=== PATIENT | male | born 1940 | race Caucasian/White ===

== ENCOUNTER 2016-04-30 09:31 | Emergency (ER) | payer OTHER ==
[~2016-04-30] VITALS: Ht 157.5 cm; Wt 67.4 kg
[2016-04-30 09:39] VITALS: Ht 157.5 cm; Wt 67.4 kg
[2016-04-30] MEDS ORDERED: SOD CHLORIDE 0.9% 1,000 ML IV STA (12:13)
[2016-04-30 12:24] LABS: ADD SCAN DIFF NO
[2016-04-30 12:28] LABS: BASOPHILS % 0.3 % (0.0-2.0); EOSINOPHILS % 0.3 % (0.0-7.0); HEMATOCRIT 50.1 % (42.0-52.0); HEMOGLOBIN 16.9 g/dl (14.0-18.0); LYMPHOCYTES # 1.5 10^3/ul (0.8-2.9); LYMPHOCYTES % 9.7 % (15.0-51.0); MEAN CORPUSCULAR HEMOGLOBIN 30.2 pg (29.0-33.0); MEAN CORPUSCULAR HGB CONC 33.7 g/dl (32.0-37.0); MEAN CORPUSCULAR VOLUME 89.6 fl (82.0-101.0); MEAN PLATELET VOLUME 10.5 fl (7.4-10.4); MONOCYTE # 0.5 10^3/ul (0.3-0.9); MONOCYTES % 3.4 % (0.0-11.0); NEUTROPHIL # 12.8 10^3/ul (1.6-7.5); NEUTROPHILS % 85.7 % (39.0-77.0); PLATELET COUNT 242 10^3/UL (140-415); RED BLOOD COUNT 5.59 10^6/ul (4.70-6.10); RED CELL DISTRIBUTION WIDTH 12.1 % (11.5-14.5)
[2016-04-30] MEDS ORDERED: MECLIZINE 12.5 MG TAB PO ONE (12:30)
[2016-04-30 12:46] LABS: ALBUMIN 4.2 g/dl (3.3-4.9); POTASSIUM 4.3 mmol/L (3.5-5.1)
[2016-04-30 12:48] LABS: BILIRUBIN,INDIRECT 0.4 mg/dl (0-1.1); BILIRUBIN,TOTAL 0.4 mg/dl (0.2-1.3); CREATININE 0.72 mg/dl (0.61-1.24)
[2016-04-30 12:49] LABS: ALBUMIN/GLOBULIN RATIO 1.16; CALCIUM 9.2 mg/dl (8.4-10.2); TOTAL PROTEIN 7.8 g/dl (6.1-8.1)
[2016-04-30 12:51] VITALS: BP 170/81; PULSE 61; RESP 18
[2016-04-30] MEDS ORDERED: DIPH1TAB PO (13:36)
[2016-04-30] MEDS ORDERED: MECL-77 PO (13:36)
[2016-04-30] MEDS ORDERED: ONDA4TAB14 PO (13:36)
--- NOTE | 2016-04-30 13:40 | ERD ---
ER Documentation Chief Complaint Date/Time DATE: 04/30/16 TIME: 13:37 Chief Complaint vomiting,diarrhea,dizziness, weakness HPI This is 75-year-old male complains of day 2 of nausea vomiting and diarrhea. The patient has had 3 episodes of vomiting and one episode of loose stool. Both are nonbloody nonbilious. Patient states he also has room spinning no headache no focal neurological complaints such as numbness or weakness no problems swallowing or speaking. No visual disturbance. He keeps his head still symptoms are better. Patient says the symptoms are worse when moving of the head. No chest pain shortness of breath cough no diaphoresis no abdominal pain ROS All systems reviewed and are negative except as per history of present illness. Medications Home Meds Active Scripts Diphenoxylate HCl/Atropine (Lomotil 2.5-0.025 mg Tablet) 1 Each Tablet, 1 TAB PO QID Y for DIARRHEA, #10 TAB Prov:TOÑO GEORGE DO 04/30/16 Ondansetron (Ondansetron Odt) 4 Mg Tab.rapdis, 4 MG PO Q6H Y for NAUSEA AND/OR VOMITING, #10 TAB Prov:TOÑO GEORGE. DO 04/30/16 Meclizine Hcl* (Meclizine Hcl*) 25 Mg Tablet, 25 MG PO Q8H Y for DIZZINESS, #30 TAB Prov:MARK GEORGES A. DO 04/30/16 Allergies Allergies: Coded Allergies: No Known Allergy (Unverified , 04/30/16) PMhx/Soc Medical and Surgical Hx: pt denies Medical Hx, pt denies Surgical Hx Hx Alcohol Use: No Hx Substance Use: No Hx Tobacco Use: No Smoking Status: Former smoker FmHx Family History: No coronary disease Physical Exam Vitals Vital Signs Date Time Temp Pulse Resp B/P Pulse Ox O2 Delivery O2 Flow Rate FiO2 04/30/16 12:51 61 18 170/81 99 Room Air 04/30/16 09:39 98.1 59 20 162/96 99 Physical Exam Const: Well-developed, well-nourished Head: Atraumatic, normocephalic Eyes: Normal Conjunctiva, PERRLA, EOMI, normal sclera, horizontal nystagmus ENT: Normal External Ears, Nose and Mouth, moist mucus membranes. Neck: Full range of motion. No meningismus, no lymphadenopathy. Resp: Clear to auscultation bilaterally, no wheezing, rhonchi, rales Cardio: Regular rate and rhythm, no murmurs, S1 S2 present Abd: Soft, non tender x 4, non distended. Normal bowel sounds, no guarding or rebound, no pulsitile abdominal masses or bruits Skin: No petechiae or rashes, no ecchymosis , no maculopapular rash Back: No midline or flank tenderness Ext: No cyanosis, or edema, FROM x 4, normal inspection, neurovascularly intact x 4 Neur: Awake and alert, STR 5/5 x 4, sensation intact x 4, no focal findings, cerebellum intact Psych: Normal Mood and Affect Result Diagram: 04/30/16 1220 04/30/16 1220 Results 24 hrs Laboratory Tests Test 04/30/16 12:20 White Blood Count 15.010^3/ul Red Blood Count 5.5910^6/ul Hemoglobin 16.9g/dl Hematocrit 50.1% Mean Corpuscular Volume 89.6fl Mean Corpuscular Hemoglobin 30.2pg Mean Corpuscular Hemoglobin Concent 33.7g/dl Red Cell Distribution Width 12.1% Platelet Count 96181^3/UL Mean Platelet Volume 10.5fl Neutrophils % 85.7% Lymphocytes % 9.7% Monocytes % 3.4% Eosinophils % 0.3% Basophils % 0.3% Nucleated Red Blood Cells % 0.0/100WBC Neutrophils # 12.810^3/ul Lymphocytes # 1.510^3/ul Monocytes # 0.510^3/ul Eosinophils # 0.010^3/ul Basophils # 0.010^3/ul Nucleated Red Blood Cells # 0.010^3/ul Sodium Level 143mmol/L Potassium Level 4.3mmol/L Chloride Level 104mmol/L Carbon Dioxide Level 26mmol/L Anion Gap 17 Blood Urea Nitrogen 19mg/dl Creatinine 0.72mg/dl Glucose Level 105mg/dl Calcium Level 9.2mg/dl Total Bilirubin 0.4mg/dl Direct Bilirubin 0.00mg/dl Indirect Bilirubin 0.4mg/dl Aspartate Amino Transf (AST/SGOT) 30IU/L Alanine Aminotransferase (ALT/SGPT) 26IU/L Alkaline Phosphatase 123IU/L Total Protein 7.8g/dl Albumin 4.2g/dl Globulin 3.60g/dl Albumin/Globulin Ratio 1.16 Current Medications Medications (Trade) Dose Ordered Sig/Deepa Route PRN Reason Start Time Stop Time Status Last Admin Dose Admin Sodium Chloride (NS) 1,000 ml @ 1,000 mls/hr Q1H STAT IV 04/30/16 12:13 04/30/16 13:12 DC 04/30/16 12:47 Meclizine HCl (Antivert) 25 mg ONCE ONCE PO 04/30/16 12:30 04/30/16 12:31 DC 04/30/16 12:46 Procedures/MDM Patient likely has a viral gastroenteritis with nausea vomiting and diarrhea. He has a completely benign abdominal exam I do not feel he needs any imaging. His white blood count is slightly elevated at 15 however feel this is due to the viral illness. Is also having some horizontal nystagmus with vertigo consistent with a peripheral source. Will get CT head and discharge home if negative. He is better after dose of Antivert. Discharge with Antivert, Zofran and Lomotil Departure Diagnosis: Primary Impression: Vertigo Additional Impression: Vomiting and diarrhea Condition: Stable Patient Instructions: Self-Care for Vomiting and Diarrhea, Vertigo, Unspecified TOÑO GEORGE DO Apr 30, 2016 13:40
--- NOTE | 2016-04-30 14:35 | RADRPT ---
PROCEDURE: CT Brain without contrast. CLINICAL INDICATION: Dizziness TECHNIQUE: CT scan of the brain was performed on a multidetector high-resolution CT scan. Axial im aging was obtained of the brain without contrast administration. Coronal and sagittal reformatted i mages were obtained from the axial source images. Standard CT scan of the head without contrast prot ocols were performed. The total exam CTDI equals 44.33 mGy and the total exam DLP equals 720.23 mGy-cm. One or more of the following dose reduction techniques were used: - Automated exposure control. - Adjustment of the mA and/or kV according to patient size. Use of iterative reconstruction technique. COMPARISON: None. FINDINGS: The ventricular system and peripheral CSF spaces are proportionate prominent consistent with the pat ient's age and mild volume loss. There is no evidence of intracranial masses hemorrhages or midline shift. There is mild cerebellar atrophy. The bones and calvarium are intact. There is bilateral e thmoid sinus disease. Remainder of the paranasal sinuses imaged are unremarkable. The mastoids are unremarkable. IMPRESSION: 1. Generalized cerebral and cerebellar atrophy without evidence of intracranial masses hemorrhages or midline shift. 2. Paranasal sinus disease. RPTAT:AAJJ Physician Richi Date Time Electronically viewed and signed by Physician Richi on 04/30/2016 14:35 BM/
== END 2016-04-30 15:14 | disposition home or self-care (01) ==
LOC: E/R 09:31
DX: R42 Dizziness and giddiness (principal); R11.10 Vomiting, unspecified; R19.7 Diarrhea, unspecified; Z87.891 Personal history of nicotine dependence
CPT/HCPCS: 36415; 70450; 80053; 85025; 99285; J7030

== ENCOUNTER 2016-06-16 13:16 | Day surgery (SDC) | payer OTHER ==
[~2016-06-16] VITALS: Ht 165.1 cm; Wt 79.6 kg
[~2016-06-16 13:16] MED LIST: DIPH1TAB PO; MECL-77 PO; ONDA4TAB14 PO
[2016-06-16 14:00] VITALS: Ht 165.1 cm; Wt 79.6 kg
[2016-06-16 14:23] VITALS: BP 144/90; PULSE 74; RESP 21
[2016-06-16] MEDS ORDERED: FENTAnyl 50 MCG/ML VIAL ONE (14:59)
[2016-06-16] MEDS ORDERED: MIDAZOLAM 1 MG/ML 2 ML INJ ONE ×2 (14:59)
[2016-06-16 15:07] VITALS: BP 139/90; RESP 20
--- NOTE | 2016-06-17 06:48 | GILP ---
DATE OF PROCEDURE: 06/16/2016 PREOPERATIVE DIAGNOSIS: Screening colonoscopy. POSTOPERATIVE DIAGNOSIS: Small polyp in the sigmoid colon removed by biopsy. Otherwise, colon norm al. DESCRIPTION OF PROCEDURE: The patient was put in left lateral decubitus after obtaining informed co nsent. He was sedated and monitored on oximetry, EKG, and blood pressure. Very carefully, he was s edated with 3 mg IV Versed and 75 mcg of fentanyl. Advanced Olympus video colonoscope all the way t o cecum. On the way, a 3 mm polyp was noted in the sigmoid colon. This was removed by jumbo biopsy forceps and sent to histopathology. Examination of the cecum and ascending colon with appendiceal opening and ileocecal valve were identified. Cecum, ascending colon, transverse colon, and descendi ng colon were normal. In the sigmoid, one small polyp has been removed. The rectum, including retr oflexion, is essentially normal. Upon removal of scope, the patient had no complication. Plan will be to wait for biopsy report and repeat colonoscopy in 5 years. Dictated By: CITLALLI THOMPSON Conf#: [id number] DID#: [id number] CC: Won Hernadez MD;*EndCC*
== END 2016-06-16 15:15 | disposition home or self-care (01) ==
LOC: GIL 13:16
PROVIDERS: ATTEND Internal Medicine
DX: Z12.11 Encounter for screening for malignant neoplasm of colon (principal); D12.5 Benign neoplasm of sigmoid colon
CPT/HCPCS: 45380; 88305; J2250; J3010